=== PATIENT | male | born 1960 | race Caucasian/White ===

== ENCOUNTER 2024-06-05 12:46 | Emergency (ER) | payer BC, SELFPAY ==
[2024-06-05] VITALS (14 sets, daily range): BP systolic 149–179; BP diastolic 77–89; PULSE 63–74; TEMP 36.5; O2SAT 95–99; BMI 30.1
--- NOTE | 2024-06-05 13:36 | ECG_ITS ---
The [facility] Test Date: 2024-06-05 Pat Name: GERARDO RODRIGUEZ Department: Room: - Gender: Male [employer]: : 1960 Requested By: Order Number: [id number] Reading MD: JENNIFER DUBOSE Measurements Intervals [place] Rate: 74 P: 43 UT: 174 QRS: 77 QRSD: 92 T: 68 QT: 380 QTc: 407 Interpretive Statements 1100 Sinus rhythm [address] depression 9150 abnormal ECG No previous ECG available for comparison Electronically Signed On 06-06-2024 6:10:06 EST by JENNIFER DUBOSE
--- NOTE | 2024-06-05 13:36 | CT_ITS ---
The [address] [address] Patient Name: GERARDO RODRIGUEZ MRN: [id number] date: 1960 Sex: M Assigned Patient Location: ER Current Patient Location: Accession/Order Number: [id number] Exam Date: 06/05/2024 14:08 Report Date: 06/05/2024 14:16 At the request of: ROBERTO GRAYSON Procedure: CT stroke head/brain wo con CT stroke head/brain wo con 06/05/2024 1:54 PM SIGNS AND SYMPTOMS: right facial weakness, blurred vision, tongue numbness TECHNIQUE:Multi-detector CT axial slices of the brain were obtained without IV contrast. CT was performed with one or more of the following dose reduction techniques: Automated exposure control, adjustment of the mA and/or kV according to patient size, or use of iterative reconstruction technique. COMPARISON: None. FINDINGS: There is no shift of the midline structures, acute intracranial bleeding, mass effects, or evidence of acute ischemia.There is age related cortical atrophy. The ventricular system is normal in size. The brainstem and the cerebellum are unremarkable. The visualized intraorbital contents and the infratemporal soft tissues show no acute abnormality. 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 The osseous structures in the skull base and the calvarium show no abnormality. CT/CT stroke head/brain wo con IMPRESSION: No acute intracranial pathology. Chronic age-related neuro degenerative changes are noted as above. Findings were dictated with Dr. Grayson at 2:12 PM on 06/05/2024. Impression dictated by: eTn Jorgensen M.D.06/05/2024 2:16 PM [facility]ictation [facility] Electronically authenticated by: [id number] Y Date: 06/05/2024 14:16
[2024-06-05 13:57] LABS: Basophils Absolute Auto 0.1 10^3/uL (0.0-0.1); Basophils Percent Auto 0.8 % (0.2-2.0); Eosinophils Absolute Auto 0.4 10^3/uL (0.0-0.7); Eosinophils Percent Auto 4.5 % (0.9-7.0); Hematocrit 45.5 % (42.0-54.0); Hemoglobin 15.4 g/dL (14.0-18.0); Immature Granulocytes Abs Auto 0.08 10^3/uL (0.00-0.03); Immature Granulocytes Pct Auto 0.9 % (0.0-0.5); Lymphocytes Absolute Auto 2.7 10^3/uL (1.2-3.8); Lymphocytes Percent Auto 30.7 % (20.5-60.0); Mean Corpuscular HGB Conc 33.8 g/dL (29.9-35.2); Mean Corpuscular Hemoglobin 30.5 pg (25.9-34.0); Mean Corpuscular Volume 90.1 fL (80.0-94.0); Mean Platelet Volume 11.4 fL (9.5-13.5); Monocytes Absolute Auto 0.9 10^3/uL (0.3-0.8); Monocytes Percent Auto 9.7 % (1.7-12.0); Neutrophils Absolute Auto 4.8 10^3/uL (1.4-6.5); Neutrophils Percent Auto 53.4 % (43.0-75.0); Platelet Count 257 10^3/uL (150-450); Red Blood Count 5.05 10^6/uL (4.70-6.10); Red Cell Distribution Width 13.3 % (11.0-15.0); White Blood Count 8.9 10^3/uL (4.0-11.0)
[2024-06-05 14:06] LABS: Anion Gap 12.8; BUN Creatinine Ratio 8.3; Calcium 8.9 mg/dL (8.5-10.1); Carbon Dioxide 27.4 mmol/L (21.0-32.0); Chloride 103 mmol/L (98-107); Estimated GFR (African America >60 (>=60 mL/min/1.73m^2); Estimated GFR (Non-African Ame >60 (>=60 mL/min/1.73m^2); Glucose 130 mg/dL (74-106); Potassium 4.2 mmol/L (3.5-5.1); Sodium 139 mmol/L (136-145)
--- NOTE | 2024-06-05 14:52 | ED.NEUROSD1 ---
HPI - Neuro Symptoms/Deficit General Chief Complaint: Neuro Symptoms/Deficit Stated Complaint: RIGHT SIDE FACE NUMBNESS Time Seen by Provider: 06/05/24 13:08 Source: patient Mode of arrival: walk-in Limitations: no limitations History of Present Illness HPI Narrative: cc = right facial weakness Yesterday morning, the patient woke and had weakness of the right side of his face. He had been experiencing some cold symptoms in the days prior and also experiences pain rating from the right ear down towards the throat. When he tried to brush his teeth yesterday he noticed that the area around the upper rear molar was a numb and that is when he looked up and noticed the facial droop. He has hypertension and takes medicine for that. He has not missed any doses. He denies any other weakness. No history of stroke. Related Data Home Medications ?Medication ?Instructions ?Recorded ?Confirmed lisinopril 20 mg tablet 20 mg PO DAILY 06/05/24 06/05/24 metformin 500 mg tablet 500 mg PO DAILY 06/05/24 06/05/24 Previous Rx's ?Medication ?Instructions ?Recorded acyclovir 400 mg tablet 400 mg PO Q4H 10 days #60 tabs 06/05/24 amoxicillin 875 mg tablet 875 mg PO BID #14 tabs 06/05/24 prednisone 50 mg tablet 25 mg (1/2 x 50 mg) PO BID 10 days 06/05/24 #10 tabs Allergies Allergy/AdvReac Type Severity Reaction Status Date / Time No Known Drug Allergies Allergy Verified 06/05/24 12:59 Exam Narrative Exam Narrative: Nurses notes and vital signs reviewed and patient is not hypoxic. afebrile General: Well-appearing and in no apparent distress. Skin: Warm, dry, no pallor noted. No rash. Head: Right facial weakness with decreased ability to blink the right eye as well as decreased ability to lift up the cheek and former smile normally. There is a slight involvement of the lower portion of the right forehead as well. Remainder of the face and scalp are normocephalic, atraumatic. Neck: Supple, non-tender. Eye: Pupils are equal, round and EOMI. No scleral icterus. Ears, Nose, Mouth, and Throat: Right TM erythema and injection. Left TM is clear, no posterior oropharynx erythema or nasal mucosal hypertrophy, uvula is mid-line Oral mucosa is moist Cardiovascular: Regular Rate and Rhythm without murmur, gallop or rub. Respiratory: No accessory muscle use or respiratory distress. Lungs are clear to auscultation, no wheezing, rales or rhonchi Musculoskeletal: normal ROM, no calf or popliteal tenderness, no lower extremity edema/swelling Neurological: A&O x4. Right facial weakness as described above. No additional cranial nerve dysfunction observed. No truncal ataxia. Moves all extremities. Sensation intact. Psychiatric: Cooperative and interactive. Normal mood and affect. Constitutional Vital Signs, click to edit/add: Last Vital Signs Temp 97.7 F 06/05/24 12:59 Pulse 73 06/05/24 12:59 Resp 18 06/05/24 12:59 BP 179/89 H 06/05/24 12:59 Pulse Ox 97 06/05/24 13:05 O2 Del Method Room Air 06/05/24 13:05 Course Vital Signs Vital signs: Vital Signs Temperature 97.7 F 06/05/24 12:59 Pulse Rate 73 06/05/24 12:59 Respiratory Rate 18 06/05/24 12:59 Blood Pressure 179/89 H 06/05/24 12:59 Pulse Oximetry 98 06/05/24 12:59 Oxygen Delivery Method Room Air 06/05/24 12:59 Temperature 97.7 F 06/05/24 12:59 Pulse Rate 73 06/05/24 12:59 Respiratory Rate 18 06/05/24 12:59 Blood Pressure 179/89 H 06/05/24 12:59 Pulse Oximetry 97 06/05/24 13:05 Oxygen Delivery Method Room Air 06/05/24 13:05 MDM - Neuro Symptoms/Deficit MDM Narrative Medical decision making narrative: Stat brain CT did not reveal any findings consistent with acute stroke, per my discussion with the radiologist. EKG does not show evidence of atrial fibrillation. Blood tests are unremarkable. The patient was diagnosed with Kahn's palsy, that is most consistent with his physical exam findings. He was prescribed acyclovir, prednisone and I also prescribed an antibiotic for his right ear infection. He lives in [facility] and works with the [employer] and will be getting a ride home. 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 Lab Data Attestation: I reviewed the patient's lab results. Labs: Lab Results 06/05/24 Range/Units 13:46 WBC 8.9 (4.0-11.0) 10^3/uL RBC 5.05 (4.70-6.10) 10^6/uL Hgb 15.4 (14.0-18.0) g/dL Hct 45.5 (42.0-54.0) % MCV 90.1 (80.0-94.0) fL MCH 30.5 (25.9-34.0) pg MCHC 33.8 (29.9-35.2) g/dL RDW 13.3 (11.0-15.0) % Plt Count 257 (150-450) 10^3/uL MPV 11.4 (9.5-13.5) fL Neut % (Auto) 53.4 (43.0-75.0) % Lymph % (Auto) 30.7 (20.5-60.0) % Petroleum % (Auto) 9.7 (1.7-12.0) % Eos % (Auto) 4.5 (0.9-7.0) % Baso % (Auto) 0.8 (0.2-2.0) % Neut # (Auto) 4.8 (1.4-6.5) 10^3/uL Lymph # (Auto) 2.7 (1.2-3.8) 10^3/uL Petroleum # (Auto) 0.9 H (0.3-0.8) 10^3/uL Eos # (Auto) 0.4 (0.0-0.7) 10^3/uL Baso # (Auto) 0.1 (0.0-0.1) 10^3/uL Abs Immat Gran (auto) 0.08 H (0.00-0.03) 10^3/uL Imm/Tot Granulo (auto) 0.9 H (0.0-0.5) % Sodium 139 (136-145) mmol/L Potassium 4.2 (3.5-5.1) mmol/L Chloride 103 (98-107) mmol/L Carbon Dioxide 27.4 (21.0-32.0) mmol/L Anion Gap 12.8 BUN 8.0 (7.0-18.0) mg/dL Creatinine 0.96 (0.70-1.30) mg/dL Est GFR ( Amer) >60 (>=60 mL/min/1.73m^2) Est GFR (Non-Af Amer) >60 (>=60 mL/min/1.73m^2) BUN/Creatinine Ratio 8.3 Glucose 130 H (74-106) mg/dL Calcium 8.9 (8.5-10.1) mg/dL Imaging Data CT scan - head: Radiologist's impression: ITS Impressions Brain CT 06/05/24 13:36 IMPRESSION: No acute intracranial pathology. Chronic age-related neuro degenerative changes are noted as above. Findings were dictated with Dr. Grayson at 2:12 PM on 06/05/2024. Impression dictated by: Ten Jorgensen M.D.06/05/2024 2:16 PM Dictation Location: [facility] [employer] Electronically authenticated by: [id number] Y Date: 06/05/2024 14:16 ECG Data Attestation: I personally reviewed and interpreted this ECG as follows: Interpretation: EKG interpretation: Emergency Department physician interpretation. Normal sinus rhythm at 74bpm. Normal axis, normal intervals. no ST segment elevation or depression. Discharge Plan Discharge Chief Complaint: Neuro Symptoms/Deficit Clinical Impression: Kahn's palsy, Otitis media Patient Disposition: Home, Self-Care Time of Disposition Decision: 14:56 Prescriptions / Home Meds: New amoxicillin 875 mg tablet 875 mg PO BID Qty: 14 0RF acyclovir 400 mg tablet 400 mg PO Q4H 10 Days Qty: 60 0RF Rx Instructions: while awake; give 5 doses in 24 hours prednisone 50 mg tablet 25 mg PO BID 10 Days Qty: 10 0RF No Action metformin 500 mg tablet 500 mg PO DAILY lisinopril 20 mg tablet 20 mg PO DAILY Print Language: Panamanian Instructions: Kahn Palsy (ED), Ear Infection (ED) Referrals: Physician,Non-Staff, MD [Primary Care Provider] - 1 week
== END 2024-06-05 15:13 | disposition home or self-care (01) ==
PROVIDERS: Emergency Provider Emergency Medicine
DX: G51.0 Bell's palsy (principal); I10 Essential (primary) hypertension; Z79.899 Other long term (current) drug therapy; H66.91 Otitis media, unspecified, right ear
CPT/HCPCS: 36415; 70450; 80048; 85025; 93005; 99285